=== PATIENT | female | born 1990 | race Caucasian/White ===

== ENCOUNTER → 2020-08-01 | Outpatient (CLI) | payer OTHER ==
--- NOTE | 2020-08-02 08:30 | RAD ---
EXAMINATION: XR LT WRIST 3VIEWS CLINICAL HISTORY: Left wrist pain, posterior cyst TECHNIQUE: XR LT WRIST 3VIEWS Number of Images/Views: COMPARISON: None FINDINGS: Joint spaces and alignment maintained. No acute fracture. No focal soft tissue swelling. IMPRESSION: No acute osseous abnormality left wrist. Consider ultrasound or MRI for further evaluation of suspect ed cyst if indicated. Electronically signed by: Brenden Barton DO (08/02/2020 8:28 AM) [id number]
== END ==
LOC: DXRAD 13:40
PROVIDERS: ATTEND Physician Assistant
DX: M25.532 Pain in left wrist (principal)
CPT/HCPCS: 73110